=== PATIENT | female | born 1985 | race Asian ===

== ENCOUNTER 2018-09-13 15:15 | Emergency (ER) | payer BC ==
--- NOTE | 2018-09-13 15:17 | UC ---
Respiratory Complaint HPI - HPI Summary HPI Summary: 33 yo female presents with dry cough. She tells me that 2 weeks ago she had "cold-like symptoms" and a sore throat. These resolved after about a week, but then her cough began. For the last week she has been having a dry cough. Last night she took OTC robitussin with no relief. She does not smoke. Denies fever, chills, sinus symptoms, sore throat, SOB, chest pain. - History of Current Complaint Stated Complaint: COUGH Time Seen by Provider: 09/13/18 15:16 Hx Obtained From: Patient Onset/Duration: Gradual Onset Severity Currently: None Character: Cough: Nonproductive - Allergies/Home Medications Allergies/Adverse Reactions: Allergies Allergy/AdvReac Type Severity Reaction Status Date / Time No Known Allergies Allergy Verified 09/13/18 15:29 PMH/Surg Hx/FS Hx/Imm Hx - Additional Past Medical History Additional PMH: None - Family History Known Family History: Positive: None - Social History Occupation: Employed Full-time Lives: With Family Alcohol Use: None Substance Use Type: None Smoking Status (MU): Never Smoked Tobacco Review of Systems All Other Systems Reviewed And Are Negative: Yes Constitutional: Positive: Negative Skin: Positive: Negative Eyes: Positive: Negative ENT: Positive: Negative Respiratory: Positive: Cough Cardiovascular: Positive: Negative Gastrointestinal: Positive: Negative Neurovascular: Positive: Negative Neurological: Positive: Negative Psychological: Positive: Negative Physical Exam - Summary Physical Exam Summary: GENERAL: NAD. WDWN. No pain distress. SKIN: No rashes, sores, lesions, or open wounds. HEENT: Head: AT/NC Eyes: EOM intact. Conjunctiva clear without inflammation or discharge. Ears: Hearing grossly normal. TMs intact, no bulging, erythema, or edema. Nose: Nasal mucosa pink and moist. NTTP maxillary and frontal sinus. Throat: Posterior oropharynx without exudates, erythema, or tonsillar enlargement. Uvula midline. NECK: Supple. Nontender. No lymphadenopathy. CHEST: CTAB. No r/r/w. No accessory muscle use. Breathing comfortably and in no distress. CV: RRR. Without m/r/g. Pulses intact. Cap refill <2seconds NEURO: Alert. PSYCH: Age appropriate behavior. Triage Information Reviewed: Yes Vital Signs: Vital Signs: Temp Pulse Resp BP Pulse Ox 98.3 F 87 20 104/68 99 09/13/18 15:25 09/13/18 15:25 09/13/18 15:25 09/13/18 15:25 09/13/18 15:25 Vital Signs Reviewed: Yes Respiratory Course/Dx - Course Course Of Treatment: Suspect viral cough. She was given an albuterol inhaler with spacer in the clinic to use q6h prn cough. Rx for tessalon and cough syrup at bedtime. F/u if symptoms do not improve. - Differential Dx/Diagnosis Provider Diagnosis: Cough Discharge - Sign-Out/Discharge Documenting (check all that apply): Patient Departure All imaging exams completed and their final reports reviewed: No Studies - Discharge Plan Condition: Stable Disposition: HOME Prescriptions: Benzonatate CAP* [Tessalon 100 MG CAP*] 100 mg PO TID PRN #21 cap PRN Reason: Cough Codeine Phosphate/Guaifenesin [Guaifen-Codeine 100-10 mg/5 ml] 5 ml PO BEDTIME PRN #35 ml MDD 5mL PRN Reason: Cough Patient Education Materials: Acute Cough (ED) Referrals: No Primary Care Phys,NOPCP [Primary Care Provider] - Additional Instructions: If you develop a fever, shortness of breath, chest pain, new or worsening symptoms - please call your PCP or go to the ED. - Billing Disposition and Condition Condition: STABLE Disposition: Home
[2018-09-13 15:34] VITALS: BP 104/68
[2018-09-13] MEDS ORDERED: Albuterol HFA INHALER* 8 gm MDI INH ONE (15:34)
== END 2018-09-13 15:59 | disposition home or self-care (01) ==
LOC: UCEAST 15:15
DX: R05 Cough (principal)
CPT/HCPCS: 99202; A9270-GY; G0463